=== PATIENT | female | born 1990 | race Two or more races ===

== ENCOUNTER 2017-10-04 18:02 | Inpatient (IN) | payer SELFPAY ==
[~2017-10-04] VITALS: Ht 157.5 cm; Wt 64.9 kg
[2017-10-04] MEDS ORDERED: 0.9 % SODIUM CHLORIDE 10 ML DISP.SYRIN. IV PRN (18:45)
[2017-10-04] MEDS ORDERED: fentaNYL PF VIAL 100 MCG/2 ML VIAL IV PRN (18:45)
[2017-10-04] MEDS ORDERED: OXYTOCIN 30 UNIT/500 ML PREMIX 500 ML IV PRN (18:45)
[2017-10-04] MEDS ORDERED: BUTORPHANOL 2 MG/ML VIAL. IV PRN ×2 (18:45)
[2017-10-04] MEDS ORDERED: TERBUTALINE 1 MG/ML VIAL. SQ PRN (18:45)
[2017-10-04] MEDS ORDERED: IBUPROFEN 600 MG TABLET. PO PRN (18:45)
[2017-10-04] MEDS ORDERED: LIDOCAINE 1% PF 30 ML VIAL. INJ PRN (18:45)
[2017-10-04 18:47] VITALS: BP 121/69
[2017-10-04] MEDS ORDERED: DINOPROSTONE 10 MG SUPP.VAG VG ONE (19:00)
[2017-10-04] MEDS: IV RINGERS,LACTATED 1000ML 1,000 ML IV SCH (19:21)
[2017-10-04 19:34] LABS: HEMOGLOBIN 11.4 g/dL (12.0-15.5); RED BLOOD COUNT 3.43 x10^6/uL (3.50-5.40); RED CELL DISTRIBUTION WIDTH 13.7 % (11.5-14.5); WHITE BLOOD COUNT 11.5 x10^3/uL (4.0-11.0)
[2017-10-04 19:47] LABS: BILIRUBIN,URINE NEGATIVE (NEG); GLUCOSE,URINE NEGATIVE (NEG); NITRITE,URINE NEGATIVE (NEG); PROTEIN,URINE NEGATIVE (NEG-TRACE); UROBILINOGEN,URINE 0.2 mg/dL (0.2 mg/dL)
[2017-10-04 20:08] LABS: BACTERIA,URINE MODERATE /HPF (0-FEW); SQUAMOUS EPITHELIAL CELL,UR MOD /LPF
[2017-10-04] MEDS ORDERED: diphenhydrAMINE HCL 25 MG CAPSULE PO ONE (22:45)
[2017-10-05] MEDS: IV RINGERS,LACTATED 1000ML 1,000 ML IV SCH ×2 (05:05→11:15)
[2017-10-05] MEDS ORDERED: OXYTOCIN 30 UNIT/500 ML PREMIX 500 ML IV PRN ×2 (06:00→12:45)
[2017-10-05] MEDS ORDERED: IV RINGERS,LACTATED 1000ML 1,000 ML IV SCH (08:22)
[2017-10-05] MEDS ORDERED: LIDOCAINE 2% PF Vial for OR 5 ML VIAL. ONE (08:26)
[2017-10-05] MEDS ORDERED: L&D EPIDURAL CASSETTE 100 ML EP ONE (08:26)
[2017-10-05] MEDS ORDERED: NALOXONE 0.4 MG/ML VIAL. IV PRN (08:30)
[2017-10-05] MEDS ORDERED: ONDANSETRON PF 4 MG/2 ML VIAL. IV PRN (08:30)
[2017-10-05] MEDS ORDERED: L&D EPIDURAL CASSETTE 100 ML EP PRN (08:30)
[2017-10-05] MEDS ORDERED: ePHEDrine PF IN SALINE 50 MG/5 ML DISP.SYRIN IV PRN (08:30)
[2017-10-05] MEDS ORDERED: fentaNYL PF VIAL 100 MCG/2 ML VIAL EPI PRN (08:30)
[2017-10-05] MEDS ORDERED: ROPIVacaine 0.2% IN 0.9%NACL PF 40 MG/20 ML DISP.SYRIN. EPI PRN (08:30)
--- NOTE | 2017-10-05 09:03 | PDOC1 ---
OB - History Hx of Present Care: Good Care Ultrasounds: Normal mid trimester US Obstetrical Complications: None Medical Complications: None Past Family/Social History * Past Medical, Surgical, Family and Obstetric Histories reviewed from chart. Rubella: Immune RPR/VDRL: Negative GBS Status: Negative HBsAG: Negative OB - Chief Complaint & HPI Date of Admission: Date of Admission: Oct 04, 2017 at 18:02 Chief Complaint/History : 2 Para: 0 EGA: 40 Reason for admission: induction of labor Indication for induction: post dates Admission Nurse Assessment Rev: Yes Problems: OB - Admission Exam Physical Exam Vitals: VS - Last 72 Hours, by Label Date Time Temp Pulse Resp B/P (MAP) Pulse Ox O2 Delivery O2 Flow Rate FiO2 10/05/17 08:51 18 Room Air 10/05/17 03:04 20 Room Air 10/04/17 18:47 98.2 99 20 121/69 (86) 98.2 HEENT: Normal Heart: Regular Rate Lungs: Clear Abdomen: Gravid, Non tender, Soft Extremities: Edema Reflexes: Normal Cervical Dilatation: 3cm Effacement: 75% Station: -3 Membranes: Intact Heart Rate: Normal Accelerations: Accelerations Present Decelerations: No decelerations Contractions on Admission: < 5 Minutes Apart Intensity: Moderate Text A: 40 wks IUP IOL post P: Admit for IOL pitocin. ZHAO MONTOYA Jr, MD Oct 05, 2017 09:03
[2017-10-05] MEDS ORDERED: IV NORMAL SALINE 1000ML BAG 1,000 ML IV ONE (10:30)
--- NOTE | 2017-10-05 12:35 | PDOC ---
VAGINAL DELIVERY DATE DATE: 10/05/17 TIME: 12:34 : 1 Para: 1 EGA: 40 VAGINAL DELIVERY: VTX VACCUM ASSISTED: No PLACENTA: Spontaneous 8/9 SEX: Male WEIGHT Weight [ 2770 gm] Nuchal Cord: No Amniotic Fluid: Thick Meconium PAIN: Epidural EPISIOTOMY: No EXTENSION: No EBL 300 ml COMPLICATIONS none CONDITION pt. stable Signs of Intrauterine Infectio: None Shoulder Dystocia: No Problems: ZHAO MONTOYA Jr, MD Oct 05, 2017 12:35
[2017-10-05] MEDS ORDERED: ACETAMINOPHEN 325 MG TABLET. PO PRN (12:45)
[2017-10-05] MEDS ORDERED: MAG HYDROX/ALUMINUM HYD/SIMETH 30 ML ORAL.SUSP PO PRN (12:45)
[2017-10-05] MEDS ORDERED: MMR per PROTOCOL. MC PRN (12:45)
[2017-10-05] MEDS ORDERED: ZOLPIDEM 5 MG TABLET. PO PRN (12:45)
[2017-10-05] MEDS ORDERED: MAGNESIUM HYDROXIDE 2,400 MG/30 ML ORAL.SUSP. PO PRN (12:45)
[2017-10-05] MEDS ORDERED: diphenhydrAMINE HCL 25 MG CAPSULE PO PRN (12:45)
[2017-10-05] MEDS ORDERED: SIMETHICONE 80 MG TAB.CHEW PO PRN (12:45)
[2017-10-05] MEDS ORDERED: 0.9 % SODIUM CHLORIDE 10 ML DISP.SYRIN. IV PRN (12:45)
[2017-10-05] MEDS ORDERED: BENZOCAINE 20% TOPICAL AEROSOL SPRAY 57GM CAN. TP PRN (12:45)
[2017-10-05] MEDS ORDERED: PHENYLEPH/MINERAL OIL/PETROLAT RECTAL OINTMENT 28GM TUBE. RC PRN (12:45)
[2017-10-05] MEDS ORDERED: DOCUSATE SODIUM 100 MG CAPSULE. PO PRN (12:45)
[2017-10-05] MEDS ORDERED: HYDROCORTISONE 1% TOPICAL OINTMENT 30GM TUBE. TP PRN (12:45)
[2017-10-05 15:45] VITALS: BP 105/64
[2017-10-05 16:45] VITALS: BP 102/63
[2017-10-05] MEDS ORDERED: FERROUS SULFATE 325 MG TABLET. PO SCH (17:00)
[2017-10-05] MEDS: IBUPROFEN 800 MG TABLET. PO PRN (18:46)
[2017-10-05 23:30] VITALS: BP 106/71
[2017-10-05] MEDS: oxyCODONE/APAP 5/325 1 TAB TABLET PO PRN (23:38)
[2017-10-06 04:41] LABS: BASO % 0 % (0-3); EOS % 1 % (0-3); HEMATOCRIT 29.6 % (36.0-47.0); HEMOGLOBIN 9.8 g/dL (12.0-15.5); LYMPH # 2.6 x10^3/uL (1.0-4.8); LYMPH % 22 % (24-48); MEAN CORPUSCULAR HEMOGLOBIN 33 pg (25-35); MEAN CORPUSCULAR HGB CONC 33 g/dL (31-37); MEAN CORPUSCULAR VOLUME 100 fL (79-100); MONO % 7 % (0-9); NEUT % 70 % (31-73); PLATELET COUNT 176 x10^3/uL (140-400); RED BLOOD COUNT 2.95 x10^6/uL (3.50-5.40); RED CELL DISTRIBUTION WIDTH 13.9 % (11.5-14.5); WHITE BLOOD COUNT 12.1 x10^3/uL (4.0-11.0)
[2017-10-06] MEDS: IBUPROFEN 800 MG TABLET. PO PRN (06:18)
[2017-10-06] MEDS: oxyCODONE/APAP 5/325 1 TAB TABLET PO PRN (06:18)
[2017-10-06 06:19] VITALS: BP 99/62
--- NOTE | 2017-10-06 09:09 | PDOC ---
OB Progress Note Date of Service 10/06/17 Time of Evaluation 0905 Notes Pt. feeling well. No complaints. Lab Laboratory Tests Test 10/04/17 19:00 10/04/17 19:15 10/06/17 04:25 Urine Color Renetta Urine Clarity Cloudy Urine pH 6.0 Urine Specific Saxon 1.025 Urine Protein Negative mg/dL (NEG-TRACE) Urine Glucose (UA) Negative mg/dL (NEG) Urine Ketones (Stick) Negative mg/dL (NEG) Urine Blood Moderate (NEG) Urine Nitrite Negative (NEG) Urine Bilirubin Negative (NEG) Urine Urobilinogen Dipstick 0.2 mg/dL (0.2 mg/dL) Urine Leukocyte Esterase Large (NEG) Urine RBC 3-5 /HPF (0-2) Urine WBC 5-10 /HPF (0-4) Urine Squamous Epithelial Cells Mod /LPF Urine Bacteria Moderate /HPF (0-FEW) White Blood Count 11.5 x10^3/uL (4.0-11.0) 12.1 x10^3/uL (4.0-11.0) Red Blood Count 3.43 x10^6/uL (3.50-5.40) 2.95 x10^6/uL (3.50-5.40) Hemoglobin 11.4 g/dL (12.0-15.5) 9.8 g/dL (12.0-15.5) Hematocrit 34.0 % (36.0-47.0) 29.6 % (36.0-47.0) Mean Corpuscular Volume 99 fL (79-100) 100 fL (79-100) Mean Corpuscular Hemoglobin 33 pg (25-35) 33 pg (25-35) Mean Corpuscular Hemoglobin Concent 34 g/dL (31-37) 33 g/dL (31-37) Red Cell Distribution Width 13.7 % (11.5-14.5) 13.9 % (11.5-14.5) Platelet Count 214 x10^3/uL (140-400) 176 x10^3/uL (140-400) RPR Titer Additional Testing Non reactive (Non Reactive) Neutrophils (%) (Auto) 70 % (31-73) Lymphocytes (%) (Auto) 22 % (24-48) Monocytes (%) (Auto) 7 % (0-9) Eosinophils (%) (Auto) 1 % (0-3) Basophils (%) (Auto) 0 % (0-3) Neutrophils # (Auto) 8.4 x10^3uL (1.8-7.7) Lymphocytes # (Auto) 2.6 x10^3/uL (1.0-4.8) Monocytes # (Auto) 0.9 x10^3/uL (0.0-1.1) Eosinophils # (Auto) 0.1 x10^3/uL (0.0-0.7) Basophils # (Auto) 0.0 x10^3/uL (0.0-0.2) Laboratory Tests Test 10/06/17 04:25 White Blood Count 12.1 x10^3/uL (4.0-11.0) Red Blood Count 2.95 x10^6/uL (3.50-5.40) Hemoglobin 9.8 g/dL (12.0-15.5) Hematocrit 29.6 % (36.0-47.0) Mean Corpuscular Volume 100 fL (79-100) Mean Corpuscular Hemoglobin 33 pg (25-35) Mean Corpuscular Hemoglobin Concent 33 g/dL (31-37) Red Cell Distribution Width 13.9 % (11.5-14.5) Platelet Count 176 x10^3/uL (140-400) Neutrophils (%) (Auto) 70 % (31-73) Lymphocytes (%) (Auto) 22 % (24-48) Monocytes (%) (Auto) 7 % (0-9) Eosinophils (%) (Auto) 1 % (0-3) Basophils (%) (Auto) 0 % (0-3) Neutrophils # (Auto) 8.4 x10^3uL (1.8-7.7) Lymphocytes # (Auto) 2.6 x10^3/uL (1.0-4.8) Monocytes # (Auto) 0.9 x10^3/uL (0.0-1.1) Eosinophils # (Auto) 0.1 x10^3/uL (0.0-0.7) Basophils # (Auto) 0.0 x10^3/uL (0.0-0.2) Medications Current Medications Sodium Chloride (Normal Saline Flush) 3 ml QSHIFT PRN IV AFTER MEDS AND BLOOD DRAWS; Start 10/04/17 at 18:45 Ringer's Solution 1,000 ml @ 125 mls/hr Q8H IV Last administered on 11:15; Start 10/04/17 at 18:41 Butorphanol Tartrate (Stadol) 1 mg PRN Q1HR PRN IV mild to moderate labor pain ; Start 10/04/17 at 18:45 Butorphanol Tartrate (Stadol) 2 mg PRN Q1HR PRN IV Severe labor pain Last administered on 10/05/17 03:04; Start 10/04/17 at 18:45 Fentanyl Citrate (Fentanyl 2ml Vial) 100 mcg PRN Q30MIN PRN IV Severe pain; Start 10/04/17 at 18:45 Terbutaline Sulfate (Brethine) 0.25 mg 1X PRN PRN SQ SEE COMMENTS; Start 10/04 at 18:45; Stop 10/05/17 at 18:44; Status DC Lidocaine HCl 30 ml 1X PRN PRN INJ SEE COMMENTS; Start 10/04/17 at 18:45; Stop 10/06/17 at 18:44 Oxytocin/Sodium Chloride 500 ml @ 0 mls/hr CONT PRN IV SEE I/O RECORD Last administered on 10/05/17 06:33; Start 10/05/17 at 06:00 Oxytocin/Sodium Chloride 500 ml @ 0 mls/hr CONT PRN PRN IV Post delivery bleeding; Start 10/04/17 at 18:45 Ibuprofen (Motrin) 600 mg PRN Q6HRS PRN PO PAIN; Start 10/04/17 at 18:45 Dinoprostone (Cervidil) 10 mg 1X ONCE VG Last administered on 10/04/17 19:53 ; Start 10/04/17 at 19:00; Stop 10/04/17 at 19:01; Status DC Diphenhydramine HCl (Benadryl) 50 mg 1X ONCE PO ; Start 10/04/17 at 22:45; Stop 10/04/17 at 22:46; Status DC Ringer's Solution 1,000 ml @ 1,000 mls/hr Q1H IV ; Start 10/05/17 at 08:22; Stop 10/05/17 at 09:21; Status DC Ephedrine Sulfate 10 mg PRN Q2MIN PRN IV IF SBP<90; Start 10/05/17 at 08:30 Naloxone HCl (Narcan) 0.4 mg PRN Q1MIN PRN IV SEE COMMENTS; Start 10/05/17 at 08:30 Fentanyl Citrate (Fentanyl 2ml Vial) 100 mcg PRN 1X PRN EPI FOR ANESTHESIA; Start 10/05/17 at 08:30; Stop 10/06/17 at 08:29; Status DC Ropivacaine/ Fentanyl/NS 100 ml @ 14 mls/hr CONT PRN EP PAIN Last administered on 10/05/17 08:51; Start 10/05/17 at 08:30 Ondansetron HCl (Zofran) 4 mg PRN Q6HRS PRN IV NAUSEA/VOMITING; Start at 08:30 Ropivacaine/ Sodium Chloride 40 mg PRN 1X PRN EPI SEE COMMENTS; Start at 08:30; Stop 10/06/17 at 08:29; Status DC Lidocaine HCl (Lidocaine Pf 2% Vial) 5 ml STK-MED ONCE .ROUTE ; Start 10/05/17 at 08:26; Stop 10/05/17 at 08:27; Status DC Ropivacaine/ Fentanyl/NS 100 ml @ As Directed STK-MED ONCE EP ; Start at 08:26; Stop 10/05/17 at 08:27; Status DC Sodium Chloride 1,000 ml @ 125 mls/hr 1X ONCE IV Last administered on 11:14; Start 10/05/17 at 10:30; Stop 10/05/17 at 18:29; Status DC Sodium Chloride (Normal Saline Flush) 10 ml QSHIFT PRN IV AFTER MEDS AND BLOOD DRAWS; Start 10/05/17 at 12:45 Oxytocin/Sodium Chloride 500 ml @ 62.5 mls/hr CONT PRN IV SEE I/O RECORD; Start 10/05/17 at 12:45; Stop 10/05/17 at 20:44; Status DC Acetaminophen (Tylenol) 650 mg PRN Q6HRS PRN PO MILD PAIN / TEMP; Start at 12:45 Ibuprofen (Motrin) 800 mg PRN Q8HRS PRN PO INFLAMMATION/PAIN PREVENTION Last administered on 10/06/17 06:18; Start 10/05/17 at 12:45 Docusate Sodium (Colace) 100 mg PRN BID PRN PO CONSTIPATION; Start 10/05/17 at 12:45 Magnesium Hydroxide (Milk Of Magnesia) 2,400 mg PRN DAILY PRN PO CONSTIPATION; Start 10/05/17 at 12:45 Al Hydroxide/Mg Hydroxide (Mylanta Plus Xs) 30 ml PRN Q4HRS PRN PO HEARTBURN / GAS; Start 10/05/17 at 12:45 Simethicone (Gas-X) 80 mg PRN AFTMEALHC PRN PO GAS / BLOATING; Start 10/05/17 at 12:45 Diphenhydramine HCl (Benadryl) 25 mg PRN Q6HRS PRN PO ITCHING; Start 10/05/17 at 12:45 Benzocaine (Americaine) 1 spray PRN QID PRN TP TOPICAL PAIN; Start 10/05/17 at 12:45 Phenyleph/Shark Oil/Min Oil/Petrol (Preparation H) 1 fidelina PRN QID PRN RC RECTAL PAIN; Start 10/05/17 at 12:45 Hydrocortisone (Cortaid) 1 fidelina PRN QID PRN TP PERINEAL PAIN; Start 10/05/17 at 12:45 Ferrous Sulfate (Feosol) 325 mg BIDWMEALS PO ; Start 10/05/17 at 17:00 Zolpidem Tartrate (Ambien) 5 mg PRN QHS PRN PO INSOMNIA, MAY REPEAT X1; Start 10/05/17 at 12:45 Info (Do NOT chart on this placeholder) 1 ea 1X PRN PRN MC SEE COMMENTS; Start 10/05/17 at 12:45 Info (Do NOT chart on this placeholder) 1 ea 1X PRN PRN MC SEE COMMENTS; Start 10/05/17 at 12:45 Oxycodone/ Acetaminophen (Percocet 5/325) 2 tab PRN Q4HRS PRN PO MODERATE PAIN , SEVERE PAIN Last administered on 10/06/17t 06:18; Start 10/05/17 at 12:45 Exam Abd: soft, non tender, fundus firm Assessment PPD#1 s/p Plan of Care: See new orders (D/c home.) ZHAO MONTOYA Jr, MD Oct 06, 2017 09:09
[2017-10-06] MEDS ORDERED: IBUP-1060 PO (09:10)
--- NOTE | 2017-10-06 09:10 | DISCH ---
DISCHARGE INSTRUCTIONS Condition on Discharge Condition on Discharge: Stable Activity After Discharge Activity Instructions for Disc: Activity as tolerated Lifting Instructions after Dis: No heavy lifting Driving Instructions after Dis: Do not drive today Diet after Discharge Diet after Discharge: Regular Contacting the DRNisha after DC Call your doctor for: Concerns you may have Follow-Up Follow up with: Alex in 6 weeks. ZHAO MONTOYA Jr, MD Oct 06, 2017 09:10
[2017-10-06 11:30] VITALS: BP 102/68
== END 2017-10-06 14:30 | disposition home or self-care (01) | DRG 775 ==
LOC: 3 SO LND 18:02
PROVIDERS: ADMIT Obstetrics & Gynecology; ATTEND Obstetrics & Gynecology
PROC: 10E0XZZ Delivery of Products of Conception, External Approach (ICD-10-PCS; principal; 2017-10-05)
PROC: 3E0P3VZ Introduction of Hormone into Female Reproductive, Percutaneous Approach (ICD-10-PCS; 2017-10-05)
PROC: 3E0R3BZ Introduction of Anesthetic Agent into Spinal Canal, Percutaneous Approach (ICD-10-PCS; 2017-10-05)
PROC: 00HU33Z Insertion of Infusion Device into Spinal Canal, Percutaneous Approach (ICD-10-PCS; 2017-10-05)
DX: O48.0 Post-term pregnancy (principal); O77.0 Labor and delivery complicated by meconium in amniotic fluid; Z37.0 Single live birth; Z3A.40 40 weeks gestation of pregnancy
CPT/HCPCS: 36415; 59070; 81001; 85025; 85027; 86593; 86850; 86900; 86901; 87086; J2590; J7030; J7120